=== PATIENT | female | born 1940 | race Caucasian/White ===

== ENCOUNTER 2024-09-05 20:43 | Inpatient (IN) | payer OTHER, SELFPAY ==
[2024-09-05] VITALS (7 sets, daily range): BP systolic 144–184; BP diastolic 59–91; BMI 25.5; BMI 24.5
--- NOTE | 2024-09-05 17:19 | ED.MUSCINJ ---
HPI-Injury
General
Chief Complaint: Musculo-Skeletal Complaint
Source: patient
Exam Limitations: none
Time Seen by Provider: 09/05/24 17:09
Nursing documentation reviewed up to this point in time: agreed with
History of Present Illness-Injury
Is this injury a work related problem?: No
Is pt an associate of [facility]/[place]?: No
Initial Injury comments:
Patient states she tripped over her walker and fell. Denies hitting her head. Complains of pain to left hip and left shoulder. Injury occurred just [employer]. Brought to ED via EMS for eval.
Past History
Past History
ED Past Medical History: HTN and Hypothyroidism
ED Past Surgical History: None
Review of Systems
Review of Systems
Allergies reviewed?: Yes
All Other Systems: ROS reviewed and negative except as documented in HPI and ROS
Constitutional: Reports no symptoms
EENT: Reports no symptoms
Respiratory: Reports no symptoms
Cardiac: Reports no symptoms
ABD/GI: Reports no symptoms
: Reports no symptoms
Musculoskeletal: Reports joint pain (Pain to left hip, left shoulder)
Skin: Reports no symptoms
Neurological: Reports no symptoms
Psychiatric: Reports no symptoms
Musculoskeletal Injury Exam
Musculoskeletal Injury Exam
Left Hip:
Pain with Movement?: Moderate
Tender to palpation?: Moderate
Soft tissue swelling?: None
Joint effusion?: None
Contusion?: Moderate
Hematoma-local bleeding into tissue?: None
Strain- Sprain- Tear (Connective tissue injury)?: Moderate
Crepitus with movement?: No
Joint instability?: No
Malalignment/deformity?: No
Range of motion: Limited
Distal skin color and temperature: normal-warm & good color
Capillary Refill: normal
Normal distal neurovascular exam?: Yes
Peripheral Pulses: posterior tibial (left): 3+ and dorsalis pedis (left): 3+
Left Shoulder:
Pain with Movement?: Moderate
Tender to palpation?: Moderate
Soft tissue swelling?: None
External deformity and angulation?: None
Joint effusion?: None
Hematoma-local bleeding into tissue?: None
Strain- Sprain- Tear (Connective tissue injury)?: None
Crepitus with movement?: No
Joint instability?: No
Malalignment/deformity?: No
Range of motion: Limited
Distal skin color and temperature: normal-warm & good color
Capillary Refill: normal
Normal distal neurovascular exam?: Yes
Peripheral Pulses: radial (left): 3+
Phy Exam
General Physical Exam
General Presentation: moderate distress
General age: appears stated age
General Skin: warm and dry
General Habitus: normal
General Mental: alert
Cardiovascular Exam
Cardiovascular Exam: regular rate/rhythm and no edema
Pulmonary Exam
Pulmonary Exam: no respiratory distress and chest non tender
Gastrointestinal Exam
Gastrointestinal Exam: normal bowel sounds, non tender, soft and no organomegaly
Musculoskeletal Exam
Musculoskeletal Exam: neuro vasc intact
Skin Exam
Skin Exam: normal color, warm/dry and no rash
Psychiatric Exam
Psychiatric Exam: normal mood/affect
Injury Course
Orders/Labs/Results
Orders:
Orders
09/05/24 Dinner
Regular
At Your Request: Non-Participating
09/05/24 17:17
HYDROmorphone [Dilaudid] 0.5 mg IV NOW STA
Ondansetron Injectable [Zofran] 4 mg IV NOW STA
Hip, Left 2-3 Views [CR Hip - LT w/wo Pel 2-3 Vw*] Urgent
Comment:
Reason For Exam: fall
Include a pelvis x-ray?: Yes
Shoulder, Left, Trauma CR [CR Shoulder, Trauma - Left] Urgent
Comment:
Reason For Exam: fall
09/05/24 17:18
0.9% Sodium Chloride 1000 ml [Nss] 1,000 ml IV BOLUS
09/05/24 17:32
Type+Screen Urgent
Complete Blood Count/With Diff Urgent
Comprehensive Metabolic Panel Urgent
09/05/24 17:38
Morphine Sulfate 2 mg IV NOW STA
09/05/24 19:15
ABO2 Urgent
BBK Wristband Number:
Associate notified that ABO2 has been ordered: [id number]
Date: 09/05/24
Time: 18:03
[employer]inter ID: [id number]
Urinalysis Reflex To Culture Urgent
Date Specimen was Collected: 09/05/24
Time Specimen was Collected: 17:59
Urine Microscopic Reflex Cult Urgent
Urine Culture Urgent
SAAD Source: U
Specimen Description:
Date Specimen was Collected: 09/05/24
Time Specimen was Collected: 17:59
09/05/24 20:07
Admit/Transfer Patient As Directed
Co-Sign Provider:
Level of Care: Inpatient admission
Assign to:: Medical/Surgical
Physician / Group: rissa skinner
Diagnosis: mechan fall w/left hip fx shoulder strain
Reason for Hospitalization: mechan fall w/left hip fx shoulder strain
Expected length of stay greater than two midnights?: Yes
ELOS- Estimated Length of Stay in days: 4
I certify the patient meets the requirements for IP care: Yes
Code Status As Directed
Resuscitation Status: Full Code
09/05/24 20:13
PRN Pain Medication Management As Directed
May give lesser potent ordered pain med per pt: Yes
preference::
Protocol:: Medication orders for pain may be administered in a
manner that supports deferring to patient preference
when the pt is:
- Requesting an ordered lesser potent pain medication.
Least to most potent pain medications are defined
as: acetaminophen < NSAID < tramadol < opioids
(morphine, oxycodone, hydromorphone).
- Requesting a lesser dose of the same medication IF
ORDERED.
- Requesting a less intrusive route of administration
if both routes are prescribed by the provider (PO <
IV).
09/05/24 20:33
EKG [Electrocardiogram (*1)] Urgent
Reason for Study: PreOp
09/05/24 21:19
Morphine Sulfate 2 mg IV Q4HPRN PRN
Morphine Sulfate 4 mg IV Q4HPRN PRN
Ondansetron Injectable [Zofran] 4 mg IV Q6HPRN PRN
09/05/24 21:19
ORTHOPEDIC CONSULT Routine
Consulting Provider: Sascha Marshall
Was physician already notified: Yes
Reason for consult: left hip fx
Activity As Directed
Activity Level: With Assistance
Intake/ Output As Directed
Frequency: Per unit guidelines
Sequential Compression Device [Pneumatic Compression Sleeves] As Directed
Type: Knee high
Vital Signs As Directed
Frequency: Per unit guidelines
Weight As Directed
Frequency: Daily
O2 Therapy [RESP] Routine
Nasal Cannula Liter Flow: 2 LPM
Titrate/Wean O2 to maintain O2 sat greater than (%): 92
Pulse Ox/spot Check [RESP] Routine
Quantity: 1
Ot Eval And Treat Routine
Pt Eval And Treat Routine
Activity Level: With Assistance
DX Deep Vein Thrombosis Video Routine
09/06/24 Breakfast
NPO
Allow oral meds: Yes
Allow clear liquids: No
NPO with Ice Chips: No
Complete Blood Count/With Diff IN AM
Comprehensive Metabolic Panel IN AM
09/06/24 08:00
Donepezil [Aricept] 5 mg PO BID
Multivitamin [Theragran] 1 tablet PO BID
09/06/24 12:00
Levothyroxine [Synthroid] 100 mcg PO NOON
Metoprolol [Lopressor] 25 mg PO NOON
Midodrine [ProAmatine] 5 mg PO NOON
09/07/24 06:00
Complete Blood Count/With Diff IN AM
Comprehensive Metabolic Panel IN AM
09/07/24 08:00
Bisacodyl [Dulcolax] 10 mg RECTAL [id number] PRN
Docusate W/Senna [Senokot-S] 1 tablet PO BIDPRN PRN
Polyethylene Glycol Powder [Miralax] 17 grams PO DAILYPRN PRN
09/07/24 12:00
Aspirin Low Dose EC [Aspir Low (Enteric Coated)] 81 mg PO NOON
09/08/24 06:00
Complete Blood Count/With Diff IN AM
Comprehensive Metabolic Panel IN AM
09/09/24 06:00
Complete Blood Count/With Diff IN AM
Comprehensive Metabolic Panel IN AM
Abnormal Lab Results
09/05/24 09/05/24
17:32 19:15
WBC 13.2 H 10^3/uL
(4.8-10.8)
RBC 3.86 L 10^6/uL
(4.20-5.40)
MCH 34.5 H pg
(27.0-31.0)
MPV 11.3 H fL
(7.4-10.4)
Abs Immat Gran (auto) 0.2 H 10^3/uL
(0-0.05)
Absolute Neuts (auto) 11.2 H 10^3/uL
(1.4-6.5)
Absolute Lymphs (auto) 0.8 L 10^3/uL
(1.2-3.4)
Absolute Monos (auto) 0.9 H 10^3/uL
(0.1-0.6)
Immature Gran % 1.6 H %
(0-0.5)
Neutrophils % 84.4 H %
(42.2-75.2)
Lymphocytes % 6.0 L %
(20.5-51.1)
Glucose 124 H mg/dl
(70-99)
AST 39 H U/L
(14-36)
Leukocyte Esterase Rfl 1+ A
(Negative)
Urine Bacteria (Reflex) Many A
(Negative)
09/05/24 17:32
09/05/24 17:32
MDM/Problems Addressed
Differential Diagnosis Includes:
Patient to ED after trip and fall at home. No head injury. Pain to left hip and shoulder. Left hip with intratrochanteric fx. Dr. Marshall consulted. NPO after MN, for OR in AM. Discussed xray results and plan with patient and son and they are
agreeable to plan.
*Radiology
Radiology exam reviewed: radiology read reviewed
*Pulse Oximetry
Patient hypoxic: no
*Critical Care Note
Total Time (30-74mins, 75-104mins- exclusive of procedures): Not Applicable
Update Note
Update Note:
Patient requesting limited IV fluids. States patient experienced fluid overload in past and he does not want it to happen again.
ED Attending Note
-
Portions of this chart may have been created with voice recognition software.� Occasional wrong word or��sound alike� substitutions may have occurred due to the inherent limitations of voice recognition software.
Discharge Plan
Departure
Patient Disposition: Admit
Date of Disposition: 09/05/24
Time of Disposition: 19:15
Presentation/result/management discussed w/ accepting MD/DO: Hospitalist
Patient with high blood pressure during this ER visit?: Yes
Condition: Fair
Covid-19: Not Applicable
Discharge Problem:
Closed fracture of left hip
Interventions
Interventions:
*Risk Screen - Suicide Last Done: 09/05/24 17:30
*General Assessment Last Done: 09/05/24 17:30
*Neglect/Abuse Screening Last Done: 09/05/24 17:36
ED- Fall Risk Assessment Last Done: 09/05/24 21:14
*ED COVID-19 Vaccine History Last Done: 09/05/24 17:30
*Nursing Disposition Last Done: 09/05/24 21:14
Discharge Date and Time
Discharge Date/Time: 09/05/24 21:14
[2024-09-05] MEDS: NSS 1000 IV (17:29)
[2024-09-05 17:42] LABS: % Basophils 0.7 % (0-2); % Eosinophils 0.7 % (0-6); % Immature Granulocytes 1.6 % (0-0.5); % Monocytes 6.6 % (1.7-9.3); % Neutrophils 84.4 % (42.2-75.2); Absolute Basophils 0.1 10^3/uL (0-0.2); Absolute Eosinophils 0.1 10^3/uL (0-0.7); Absolute Immature Granulocytes 0.2 10^3/uL (0-0.05); Absolute Lymphocytes 0.8 10^3/uL (1.2-3.4); Absolute Monocytes 0.9 10^3/uL (0.1-0.6); Absolute Neutrophils 11.2 10^3/uL (1.4-6.5); Hematocrit 37.9 % (37.0-47.0); Hemoglobin 13.3 g/dL (12.0-16.0); Mean Corp Hgb Conc. 35.1 g/dL (33.0-37.0); Mean Corpuscular Hgb 34.5 pg (27.0-31.0); Mean Corpuscular Volume 98.2 fL (81.0-99.0); Mean Platelet Volume 11.3 fL (7.4-10.4); Nucleated Red Blood Cells % 0 %; Platelet Count 225 10^3/uL (130-400); Red Blood Cell Count 3.86 10^6/uL (4.20-5.40); Red Cell Dist. Width 13.2 % (11.5-14.5); White Blood Cell Count 13.2 10^3/uL (4.8-10.8)
[2024-09-05] MEDS: MORPHINE SULFATE 2 MG IV (17:53)
[2024-09-05] MEDS: ZOFRAN 4 MG IV (17:54)
[2024-09-05 17:59] LABS: ALT (SGPT) 25 U/L (0-35); AST (SGOT) 39 U/L (14-36); Albumin 4.7 g/dl (3.5-5.0); Alkaline Phosphatase 97 U/L (38-126); Blood Urea Nitrogen 15 mg/dl (7-17); Calcium 9.9 mg/dl (8.4-10.2); Carbon Dioxide 28 mmol/L (22-30); Chloride 99 mmol/L (98-107); Estimated Creatinine Clearance 44 ml/min; Glucose 124 mg/dl (70-99); Potassium 4.3 mmol/L (3.5-5.1); Sodium 139 mmol/L (135-145); Total Bilirubin 0.7 mg/dl (0.2-1.3); Total Protein 6.9 g/dl (6.3-8.2); eGFR > 60.00
--- NOTE | 2024-09-05 19:30 | HPS.HSE ---
Addendum entered and electronically signed by Adrian Dawkins DO 09/05/24 22:00:
Patient seen and examined independently. Agree with findings and plan as set forth by JUJU Curtis.
Patient is an 83y F with PMH significant for mild dementia, hypertension and hypothyroidism who presents to ED for evaluation s/p fall at home. Patient states that she tripped over her walker and fell onto her L side. She complained of L hip
pain and L shoulder pain. L shoulder pain has since resolved. In the ED, x-rays showed evidence of L hip fracture.
Ass:
Left Hip Fracture
Mechanical Fall at Home
ASCVD (Carotid Stenosis / PAD)
Chronic HFpEF
Benign Hypertension
Hypothyroidism
Gait Dysfunction / Mild Tremor
Plan:
Admit for further evaluation and treatment.
Bedrest, pain control, etc overnight.
Ortho evaluation for operative repair.
EKG is pending given prior h/o CEA, PAD, etc.
Patient denies any prior complications of surgery / anesthesia.
No evidence of acute volume overload or other decompensated state at present.
Benefits of planned procedure outweigh potential risks and patient is OK to proceed to OR without additional pre-op evaluation(s).
Post-Op PT / OT, pain control, DVT prophylaxis, etc
Continue usual home medication regimen except for Lasix (which she only takes every 3 days).
Follow I/Os, daily weights, etc.
Recommend outpatient Neuro eval for symptoms (memory, gait, tremor) suggestive of Parkinsonism.
Original Note:
Family Physician
-
Family Physician: Shreyas Hollis
Chief Complaint
-
Trip and fall, left hip left shoulder pain
History of Present Illness
83-year-old female from home where she tripped over her walker falling landing on her left side. She denies hitting her head or LOC. She is complaining of pain in her left hip and left shoulder. She was noted to have a left hip fracture on x-rays
in the ER. The patient lives by herself in a condo. She has aides from - during a week and - on the weekends. She denies any headache, blurred vision, sore throat, chest pain, palpitations, shortness with, cough, abdominal pain, nausea,
vomiting, diarrhea, urinary symptoms. She has a past medical history of hypertension, hyperlipidemia, hypothyroidism, UTIs, dementia with short-term memory impairment, chronic tremor/shuffling gait right greater than left.
Medical History
Past Medical History
Past Medical History: Reports Other
Additional Past Medical History:
Hypertension
Orthostatic hypotension
Hyperlipidemia
UTIs
Hypothyroidism
dementia with short-term memory impairment
chronic tremor/shuffling gait right greater than left.
Past Surgical History: Reports Other
Additional Past Surgical History:
Fem bypass with stent December 2023
Carotid stenosis bilateral CEA
Right humerus fracture secondary to fall
Social History
Tobacco: Former Smoker (25 years 1 pack a day quit 40 years ago)
Alcohol: None
Drug: None
Personal: Single
Living: Alone (In condo has aides Tuesday through 10-03, weekends -)
Employment: Retired
Family History
Family History: Other (Father CAD OR age 65, mother leukemia)
Allergies / Home Medications
Allergies reflects when Allergies were last updated in [facility].
Home Medications with original date entered in [facility]
Allergy/Medication List:
Allergies
Allergy/AdvReac Type Severity Reaction Status Date / Time
adhesive tape Allergy Unknown Verified 09/05/24 17:12
iodine Allergy Unknown Verified 09/05/24 17:12
Penicillins Allergy 'pt unsure' Verified 09/05/24 17:12
Sulfa (Sulfonamide Allergy Unknown Verified 09/05/24 17:12
Antibiotics)
Home Medications
Lactobac no.2-Bifidobac no.1-S. thermo 112.5 billion cell capsule (Visbiome) 1 cap PO NOON 09/05/24
aspirin 81 mg tablet,delayed release 81 mg PO NOON 09/05/24
d-mannose 500 mg capsule 500 mg PO NOON 09/05/24
donepezil 5 mg tablet 5 mg PO BID 09/05/24
furosemide 20 mg tablet 20 mg PO Q3D 09/05/24
levothyroxine 100 mcg tablet 100 mcg PO NOON 09/05/24
metoprolol tartrate 25 mg tablet 25 mg PO NOON 09/05/24
midodrine 5 mg tablet 5 mg PO NOON 09/05/24
therapeutic multivitamin 1 tab PO BID 09/05/24
vit C 250 mg-vit E 90 mg-zinc 40 mg-copper 1 [id number] capsule (PreserVision AREDS-2) 1 tab PO NOON 09/05/24
Review of Systems
-
History Source: Patient and Family (Son Betty at bedside)
A 12 point ROS was completed and negative except as noted: Yes
Constitutional: Denies Fever, Fatigue or Chills
EENT: Denies Sore Throat or Runny Nose
Respiratory: Denies Cough or Trouble Breathing
Cardiac: Denies Chest Pain, Diaphoresis, Palpitations or Syncope
Abdomen/GI: Denies Abdominal Pain, Nausea, Vomiting, Diarrhea, Constipated, Bloody Stools or Black Stools
: Denies Dysuria, Frequency, Flank Pain, Incontinence, Difficulty Voiding or Urgency
Musculoskeletal: Reports Joint Pain (Left hip, left shoulder); Denies Joint Swelling or Edema
Skin: Denies Itching or Rash
Neurological: Denies Dizzy, Headache or Weakness
Endocrine: Reports No Symptoms
Hematologic/Lymphatic: Reports No Symptoms
Psych: Reports Calm
Physical Exam
Vital Signs
Vital Signs
Temp Pulse Resp BP Pulse Ox
99.0 F 79 16 166/64 96
09/05/24 17:08 09/05/24 18:00 09/05/24 17:08 09/05/24 18:00 09/05/24 18:00
Physical Exam
General: Comfortable (At present time) and Conversant; No Pain, Fever or Chills
HEENT: NormoCephalic, Anicteric, Moist mucous membranes, Atraumatic, PERRLA, [place] Conjunctivae, No Ptosis, Neck Nontender and Oxygen (2 L nasal cannula)
Respiratory: Clear; No Wheezes, Rales or Rhonchi
Cardiac: S1/S2, Regular Rhythm and Murmur (Systolic 2/6); No Rub, Gallop or Peripheral Edema
Breast: Deferred by me
GI: Soft, Non Tender, Non Distended, Normal Bowel Sounds and No Hepatosplenomegaly
Rectal: Deferred by Provider
Genito-urinary: Deferred by me
Musculoskeletal: No Clubbing, No Cyanosis, No Edema and Other (Tenderness over left hip area no abrasions or ecchymosis, limited range of motion secondary to fracture, left shoulder pain no limited range of motion no swelling or abrasions)
Skin: Warm and Dry; No Rash or Jaundice
Neuro: Awake, Alert, Oriented (To name, place, son at bedside but not some of medical history), No Sensory Deficits and Other (Occasional shaking and shuffling right leg with walking not diagnosed per son betty); No Slurred Speech, Facial Droop,
Tremors or Sedated
Psych: Calm
Laboratory Results
-
09/05/24 17:32
09/05/24 17:32
Laboratory Results
Total Bilirubin 0.7 mg/dl (0.2-1.3) 09/05/24 17:32
AST 39 U/L (14-36) H 09/05/24 17:32
ALT 25 U/L (0-35) 09/05/24 17:32
Alkaline Phosphatase 97 U/L (38-126) 09/05/24 17:32
Data Reviewed
-
Diagnostic Radiology: Report Reviewed by me
Lab Data: Labs Reviewed by me
Impression/Plan
-
Impression/plan:
Admit to MedSurg
#Mechanical fall left hip intertrochanteric fracture with displacement
-N.p.o. after midnight for OR in a.m.
-Consult Dr. Marshall
-Pain control, bowel regimen
-Supplemental O2 as needed as patient becomes slightly hypoxic after IV narcotics
-Tylenol, IV morphine, IV Zofran, bowel regimen
-PT/OT/case management consult
X-ray left hip and pelvis: Acute comminuted intertrochanteric fracture of the left hip with 7 mm medial displacement and
9 mm impaction of the major distal fracture fragment
#Mechanical fall with left shoulder sprain
-Ice, pain control
Left shoulder x-ray: No fracture or dislocation
#Former smoker
-25 years 1 pack a day quit 40 years ago
#Orthostatic hypotension
-Continue midodrine 5 mg at noon
#Dementia with short-term memory impairment
#Chronic tremor/shuffling gait right greater than left.
Is oriented to name, place, son, year
-Fall precautions
-Continue donepezil 5 mg twice daily
#History of diastolic CHF
-I/O, daily weights
-Hold furosemide 20 mg every 3 days
-Continue metoprolol tartrate 25 mg at noon, continue aspirin 81 mg daily
2D echo 01/20/2022: EF 65-70%, hyperdynamic left ventricular function, no wall abnormalities, grade 1 diastolic dysfunction, mild aortic
stenosis, mild mitral stenosis
#Hypothyroidism
-Continue levothyroxine 100 mcg p.o. noon
#Hyperlipidemia
-No reported meds
#Carotid stenosis status post bilateral CEA
#Fem bypass with stent December 2023 [facility]
-Continue aspirin 81 mg daily
DVT prophylaxis
Full code per patient with son Betty emergency contact at bedside
[2024-09-05 19:34] LABS: Urine Albumin Negative (Neg - Trace); Urine Bilirubin Negative (Negative); Urine Character Clear (Clear); Urine Color Yellow; Urine Glucose Negative (Negative); Urine Ketone Negative (Negative); Urine Leukocyte 1+ (Negative); Urine Nitrite Negative (Negative); Urine Occult Blood Negative (Negative); Urine Specific Gravity 1.015 (<1.030); Urine Urobilinogen Negative (Neg - 1+)
[2024-09-05 19:44] LABS: Urine Red Blood Cell 0-2 /HPF (0-2); Urine Squamous Cell 0-2 /LPF (Few)
[2024-09-05 19:45] LABS: Urine Bacteria Many (Negative)
--- NOTE | 2024-09-05 22:59 | TRANSFER ---
Received pt from ED at 2120 dx s/p mechanical fall w left hip fracture and left shoulder sprain. Pt reported 8/10 pain from being transferred from stretcher to bed, but denied needing pain medication. VS as documented. Pt OX2, able to verbalize
needs. LLE is shortened and externally rotated. bed in lowest position, call obrien within reach. Safety maintained.
[2024-09-06] MEDS: MORPHINE SULFATE 2 MG IV (00:23)
[2024-09-06 05:54] LABS: % Basophils 0.6 % (0-2); % Eosinophils 0.4 % (0-6); % Immature Granulocytes 0.8 % (0-0.5); % Lymphocytes 8.2 % (20.5-51.1); % Monocytes 9.5 % (1.7-9.3); % Neutrophils 80.5 % (42.2-75.2); Absolute Basophils 0.1 10^3/uL (0-0.2); Absolute Eosinophils 0.1 10^3/uL (0-0.7); Absolute Immature Granulocytes 0.1 10^3/uL (0-0.05); Absolute Lymphocytes 1.4 10^3/uL (1.2-3.4); Absolute Monocytes 1.6 10^3/uL (0.1-0.6); Absolute Neutrophils 13.8 10^3/uL (1.4-6.5); Hematocrit 41.2 % (37.0-47.0); Hemoglobin 14.4 g/dL (12.0-16.0); Mean Corpuscular Hgb 35.1 pg (27.0-31.0); Mean Corpuscular Volume 100.5 fL (81.0-99.0); Mean Platelet Volume 11.5 fL (7.4-10.4); Nucleated Red Blood Cells % 0 %; Platelet Count 222 10^3/uL (130-400); Red Cell Dist. Width 13.2 % (11.5-14.5); White Blood Cell Count 17.1 10^3/uL (4.8-10.8)
[2024-09-06 07:13] VITALS: BP 135/59
--- NOTE | 2024-09-06 07:21 | CON.ORTHO ---
Consultation
-
Date/Time Consultation Requested: unknown
Date/Time Consultation Performed: 09/06/24 @ 7:20am
Performing Provider: Jennifer Vergara PA-C, Sascha Marshall MD
Reason for Consultation: left hip fracture
Consultation - Orthopedics
History
HPI: 83yo female admitted to [facility] for left hip pain. History obtained via patient, son, and chart review. She reports that she had a fall and was unable to get up. She was brought to the ER for evaluation by EMS. Xrays in the ER
reveal left hip fracture. She is not on any blood thinners. Son reports that patient has had nausea and confusion following anesthesia in the past. Orthopedics has been consulted for further recommendations.
PAST MEDICAL HISTORY: hypertension, orthostatic hypotension, hyperlipidemia, hypothyroid, dementia with short term memory impairment, chronic tremor/shuffling gait, carotid stenosis
PAST SURGICAL HISTORY: femoral bypass with stent December 2023 at [facility], bilateral CEA, right humerus
SOCIAL HISTORY: former smoker, denies alcohol. lives at home alone with aides during the day
FAMILY HISTORY: Noncontributory
REVIEW OF SYSTEMS: 12 point review of systems obtained and negative except those mentioned in the HPI
Allergies / Home Medications
Allergy/AdvReac Type Severity Reaction Status Date / Time
adhesive tape Allergy Unknown Verified 09/05/24 17:12
iodine Allergy Unknown Verified 09/05/24 17:12
Penicillins Allergy 'pt unsure' Verified 09/05/24 17:12
Sulfa (Sulfonamide Allergy Unknown Verified 09/05/24 17:12
Antibiotics)
�Medication �Instructions �Recorded
Lactobac no.2-Bifidobac no.1-S. 1 cap PO NOON 09/05/24
thermo 112.5 billion cell capsule
(Visbiome)
aspirin 81 mg tablet,delayed 81 mg PO NOON 09/05/24
release
d-mannose 500 mg capsule 500 mg PO NOON 09/05/24
donepezil 5 mg tablet 5 mg PO BID 09/05/24
furosemide 20 mg tablet 20 mg PO Q3D 09/05/24
levothyroxine 100 mcg tablet 100 mcg PO NOON 09/05/24
metoprolol tartrate 25 mg tablet 25 mg PO NOON 09/05/24
midodrine 5 mg tablet 5 mg PO NOON 09/05/24
therapeutic multivitamin 1 tab PO BID 09/05/24
vit C 250 mg-vit E 90 mg-zinc 40 1 tab PO NOON 09/05/24
mg-copper 1 [id number]
capsule (PreserVision AREDS-2)
Vital Signs / Lab Results
Temp Pulse Resp BP Pulse Ox
97.3 F 95 20 135/59 94
09/06/24 07:13 09/06/24 07:13 09/06/24 07:13 09/06/24 07:13 09/06/24 07:13
09/06/24 04:26
RADIOGRAPHIC FINDINGS:
Xrays left hip show acute comminuted intertrochanteric fracture of the left hip with 7 mm medial displacement and 9 mm impaction of the major distal fracture fragment. Xrays left shoulder show no acute fracture or dislocation.
PHYSICAL EXAM:
General: no acute distress. able to tell me her name, states that she is at [facility] and the year is 1993
HEENT: NCAT, sclera anicteric, normal hearing
Heart: No JVD
Lungs: Normal work of breathing on nasal cannula
MSK: Directed exam of left lower extremity reveal leg shortened and externally rotated. Mild general tenderness about laterl hip. +Log roll. Able to plantarflex and dorsiflex the ankle. Wiggles toes. NVI distally
Assessment / Plan
ASSESSMENT: 83yo female with left intertrochanteric hip fracture
PLAN: Unfortunately, Ms. Marques sustained a left hip fracture from a fall. I did speak to the patient's son, Mc Marques, via telephone ([phone]). This fracture is amenable to operative treatment. Recommend left hip gamma nail under the
direction of Dr. Marshall later today. The risks, benefits, and potential complications were reviewed with Mc. He would like to speak to Dr. Marshall prior to signing consent. I did make Dr. Marshall aware. Bedrest for now. Remain NPO. Type and screen
complete. [employer] intelligence applications to OR. Will continue to follow along.
[2024-09-06 07:54] LABS: ALT (SGPT) 24 U/L (0-35); AST (SGOT) 33 U/L (14-36); Albumin 4.4 g/dl (3.5-5.0); Alkaline Phosphatase 102 U/L (38-126); Blood Urea Nitrogen 14 mg/dl (7-17); Calcium 9.5 mg/dl (8.4-10.2); Carbon Dioxide 25 mmol/L (22-30); Chloride 104 mmol/L (98-107); Estimated Creatinine Clearance 55 ml/min; Glucose 119 mg/dl (70-99); Sodium 141 mmol/L (135-145); Total Bilirubin 1.2 mg/dl (0.2-1.3); Total Protein 6.6 g/dl (6.3-8.2); eGFR > 60.00
--- NOTE | 2024-09-06 08:36 | W.PN.HOSP.TC ---
Today's Communication/Plan
-
For surgical fixation today
Assessment / Plan
Assessment / Plan
HPI: 83y F with PMH significant for mild dementia, hypertension and hypothyroidism who presents to ED for evaluation s/p fall at home. Patient states that she tripped over her walker and fell onto her L side. She complained of L hip pain and L
shoulder pain. L shoulder pain has since resolved. In the ED, x-rays showed evidence of L hip fracture.
#Mechanical fall left hip intertrochanteric fracture with displacement
Appreciate orthopedic surgery input, for surgical fixation today
Pain control, laxatives, PT/OT after surgery
Anticipate patient will need SNF afterwards
#Mechanical fall with left shoulder sprain
Left shoulder x-rays negative for fracture or dislocation
#Former smoker
-25 years 1 pack a day quit 40 years ago
#Orthostatic hypotension
-Continue midodrine 5 mg at noon
#Dementia with short-term memory impairment
#Chronic tremor/shuffling gait right greater than left.
Is oriented to name, place, son, year
-Fall precautions
-Continue donepezil 5 mg twice daily
#History of diastolic CHF
-Hold furosemide 20 mg every 3 days
-Continue metoprolol tartrate 25 mg at noon, continue aspirin 81 mg daily
#Hypothyroidism
-Continue levothyroxine 100 mcg p.o. noon
#Hyperlipidemia
-No reported meds
#Carotid stenosis status post bilateral CEA
#Fem bypass with stent December 2023 [facility]
-Continue aspirin 81 mg daily
DVT prophylaxis -SCDs for now in anticipation of surgery, therapeutic Lovenox postoperatively
Full code
Total time spent to see the patient on the floor, examine the patient, review data and lab results, discuss treatment plan with patient, nursing staff around 55 minutes.
Physical Exam
General: No acute distress
HEENT: Normocephalic, Atraumatic, EOMI, MMM
Respiratory: Clear to Auscultation bilaterally
Cardiac: Normal S1/S2, Regular Rate and Rhythm
GI: Soft, Nontender, Nondistended, Normal Bowel Sounds
Extremities: No Clubbing, Cyanosis
Musculoskeletal: Left leg shortened and externally rotated
Neuro: Nonfocal/Grossly Intact
Psych: Calm, Cooperative
Anticipated Discharge: > 48 hours
Subjective/Interval History
-
Date of Service: September 06, 2024
Patient reports she only has hip pain with movement. No fever, no vomiting. No chest pain, no shortness of breath.
Objective Data
-
Labs:
Laboratory Results
09/06/24 09/06/24
04:26 07:14
WBC 17.1 H
Hgb 14.4
Hct 41.2
Plt Count 222
Sodium Cancelled 141
Potassium Cancelled 4.0
Chloride Cancelled 104
Carbon Dioxide Cancelled 25
BUN Cancelled 14
Creatinine Cancelled 0.6
Glucose Cancelled 119 H
Calcium Cancelled 9.5
Total Bilirubin Cancelled 1.2
AST Cancelled 33
ALT Cancelled 24
Alkaline Phosphatase Cancelled 102
Vital Signs:
Vital Signs
Temp Pulse Resp BP Pulse Ox
97.3 F 95 20 135/59 94
09/06/24 07:13 09/06/24 07:13 09/06/24 07:13 09/06/24 07:13 09/06/24 07:13
I&O
09/05/24 09/06/24 09/07/24
06:59 06:59 06:59
Intake Total 240 / 240
Output Total 400 / 400
Balance -160 / -160
[2024-09-06] MEDS: ARICEPT 5 MG PO ×2 (10:07→20:37)
[2024-09-06] MEDS: THERAGRAN 1 TABLET PO ×2 (10:07→20:37)
--- NOTE | 2024-09-06 10:21 | CM ---
Met with pt at bedside, spoke with pts son Mc to complete initial assessment
Pt lives alone in an apartment; elevator access
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 studio potter assists with ADL's, does shopping,cleaning. prepares meals. Pt ambulates with rolling walker at baseline
DME - rolling walker, cane, shower chair
SNF - in past, son unsure of facility
HH - was to start with Manuel this week
PCP - [facility] - sees multiple providers
Pharm - [facility]
Discussed possibility of SNF with son. Discussed Medicare.gov site to review facilities
Given CM name/contact info
CM will follow up w/son
Plan - anticipate SNF - TBD
--- NOTE | 2024-09-06 12:14 | W.PN.UPDATE ---
Update Note
Progress Note Update
Patient seen and examined with son at bedside. Patient admitted with left IT fracture. Explained treatment recommendations to proceed with gamma nail for left IT fracture. Risks, benefits, complications and postop expectations discussed.
Procedure itself discussed in detail. All questions answered. Informed consent obtained by telephone earlier and again in person. Consent on chart. Explained that myself or Dr. Marshall would proceed with surgery as the OR permits. OR
unavailable currently as no C-arm available.
[2024-09-06] MEDS: SYNTHROID 100 MCG PO (12:36)
[2024-09-06] MEDS: LOPRESSOR 25 MG PO (12:36)
[2024-09-06] MEDS: ProAmatine PO (12:37)
[2024-09-06 15:25] VITALS: BP 147/66
[2024-09-06] MEDS: MORPHINE SULFATE 4 MG IV (16:03)
[2024-09-06] MEDS: ZOFRAN 4 MG IV (17:29)
[2024-09-06] MEDS: MIRALAX 17 GRAMS PO (20:36)
[2024-09-06] MEDS: TYLENOL 650 MG PO (20:37)
[2024-09-06] MEDS: SENOKOT-S 2 TABLET PO (20:37)
[2024-09-06 23:00] VITALS: BP 132/66
[2024-09-07] VITALS (13 sets, daily range): BP systolic 114–162; BP diastolic 61–81; PULSE 81; O2SAT 96–98
[2024-09-07] MEDS: MORPHINE SULFATE 2 MG IV (05:51)
[2024-09-07 06:42] LABS: Hematocrit 37.3 % (37.0-47.0); Hemoglobin 12.6 g/dL (12.0-16.0); Mean Corp Hgb Conc. 33.8 g/dL (33.0-37.0); Mean Corpuscular Volume 100.5 fL (81.0-99.0); Mean Platelet Volume 10.9 fL (7.4-10.4); Platelet Count 214 10^3/uL (130-400); Red Blood Cell Count 3.71 10^6/uL (4.20-5.40); Red Cell Dist. Width 13.6 % (11.5-14.5); White Blood Cell Count 16.8 10^3/uL (4.8-10.8)
[2024-09-07 07:17] LABS: Blood Urea Nitrogen 21 mg/dl (7-17); Calcium 9.5 mg/dl (8.4-10.2); Carbon Dioxide 25 mmol/L (22-30); Chloride 103 mmol/L (98-107); Estimated Creatinine Clearance 42 ml/min; Glucose 110 mg/dl (70-99); Magnesium 2.2 mg/dl (1.6-2.3); Potassium 4.3 mmol/L (3.5-5.1); Sodium 142 mmol/L (135-145); eGFR > 60.00
--- NOTE | 2024-09-07 08:00 | PTCARENOTE ---
Pt instructed on what to expect pre and post operatively. Although Pt has hx of dementia was able to verbalize understanding of instructions. VSS, Pt is afebrile. Verbal report given to Sonja RDZ. Pt's son called and aware that Pt on her way to
surgical suite now.
--- NOTE | 2024-09-07 09:19 | W.PN.UPDATE ---
Update Note
Progress Note Update
83-year-old female left hip intertrochanteric femur fracture plan for OR originally 06 September 2024 however case was deferred due to OR and equipment availability.
Plan 4 OR today 07 September 2024 for left hip cephalomedullary nail fixation with Dr. Hendrickson. Consent on file. N.p.o. We will update postoperative orders
--- NOTE | 2024-09-07 11:25 | PTCARENOTE ---
Pt received from the PACU via bed. Transport was w/o incident. Pt is drowsy and easily arousable. Dressings: 3 antibacterial dressings to left hip and upper leg are intact. Two lower dressings with minimal shadowing noted. Pt denies pain, or nausea
at this time. Pt can wiggle toes of operative left leg. Pt reports minimal sensation to b/l legs at this time. Pt had spinal anesthesia prior to needing General anesthesia. Will continue to monitor for return of sensation to legs. VSS, Pt is
afebrile. Pt instructed on plan of care. Pt verbalized understanding of instructions. Call obrien is within reach.
[2024-09-07] MEDS: SENOKOT-S PO ×2 (13:01→13:13)
[2024-09-07] MEDS: TYLENOL 650 MG PO ×3 (13:01→21:03)
[2024-09-07] MEDS: THERAGRAN 1 TABLET PO ×2 (13:02→21:03)
[2024-09-07] MEDS: ARICEPT PO (13:03)
[2024-09-07] MEDS: MIRALAX 17 GRAMS PO ×2 (13:03→21:03)
[2024-09-07] MEDS: ProAmatine PO (13:05)
[2024-09-07] MEDS: SYNTHROID 100 MCG PO (13:09)
[2024-09-07] MEDS: LOPRESSOR 25 MG PO (13:09)
--- NOTE | 2024-09-07 14:33 | W.PN.HOSP.TC ---
Today's Communication/Plan
-
see bold
Assessment / Plan
Assessment / Plan
HPI: 83y F with PMH significant for mild dementia, hypertension and hypothyroidism who presents to ED for evaluation s/p fall at home. Patient states that she tripped over her walker and fell onto her L side. She complained of L hip pain and L
shoulder pain. L shoulder pain has since resolved. In the ED, x-rays showed evidence of L hip fracture.
#Mechanical fall left hip intertrochanteric fracture with displacement
Appreciate orthopedic surgery input, s/p left hip cephalomedullary nail fixation with Dr. Hendrickson 09/07
Pain control, laxatives, PT/OT after surgery
Anticipate patient will need SNF afterwards
#Leukocytosis
Urine analysis shows possible UTI
Currently on IV Ancef ordered by Ortho
Follow-up urine cultures
#Mechanical fall with left shoulder sprain
Left shoulder x-rays negative for fracture or dislocation
#Former smoker
-25 years 1 pack a day quit 40 years ago
#Orthostatic hypotension
-Continue midodrine 5 mg at noon
#Dementia with short-term memory impairment
#Chronic tremor/shuffling gait right greater than left.
Is oriented to name, place, son, year
-Fall precautions
-Continue donepezil 5 mg twice daily
#History of diastolic CHF
-Hold furosemide 20 mg every 3 days
-Continue metoprolol tartrate 25 mg at noon, continue aspirin 81 mg daily
#Hypothyroidism
-Continue levothyroxine 100 mcg p.o. noon
#Hyperlipidemia
-No reported meds
#Carotid stenosis status post bilateral CEA
#Fem bypass with stent December 2023 [facility]
-Continue aspirin 81 mg daily
DVT prophylaxis -therapeutic Lovenox
Full code
Total time spent to see the patient on the floor, examine the patient, review data and lab results, discuss treatment plan with patient, nursing staff around 45 minutes.
Physical Exam
General: No acute distress
HEENT: Normocephalic, Atraumatic, EOMI, MMM
Respiratory: Clear to Auscultation bilaterally
Cardiac: Normal S1/S2, Regular Rate and Rhythm
GI: Soft, Nontender, Nondistended, Normal Bowel Sounds
Extremities: No Clubbing, Cyanosis
Musculoskeletal: Left hip dressing with mild blood
Neuro: Nonfocal/Grossly Intact
Psych: Calm, Cooperative
Anticipated Discharge: 24 - 48 hours
Subjective/Interval History
-
Date of Service: September 07, 2024
Patient seen after her surgery. She had some nausea earlier, that resolved. Denies pain at present. No fever.
Objective Data
-
Labs:
Laboratory Results
09/07/24
06:33
WBC 16.8 H
Hgb 12.6
Hct 37.3
Plt Count 214
Sodium 142
Potassium 4.3
Chloride 103
Carbon Dioxide 25
BUN 21 H
Creatinine 0.8
Glucose 110 H
Calcium 9.5
Vital Signs:
Vital Signs
Temp Pulse Resp BP Pulse Ox
97.6 F 90 18 162/71 98
09/07/24 07:00 09/07/24 07:00 09/07/24 07:00 09/07/24 07:00 09/07/24 07:00
I&O
09/06/24 09/07/24 09/08/24
06:59 06:59 06:59
Intake Total 240 / 240 0 / 0
Output Total 400 / 400
Balance -160 / -160 0 / 0
--- NOTE | 2024-09-07 14:55 | CM ---
Case management following for discharge planning
Pt for left hip cephalomedullary nail fixation today
Met with pt in family member at bedside
Recs for SNF when discharged
Given choice list for SNF
CM will f/u for choices
Will need auth
Plan - anticipate SNF when medically stable
[2024-09-07] MEDS: ANCEF 5 IV (18:01)
[2024-09-07] MEDS: LOVENOX 40 MG SC (18:03)
[2024-09-07] MEDS: SENOKOT-S 2 TABLET PO (21:03)
[2024-09-07] MEDS: ARICEPT 5 MG PO (21:03)
[2024-09-08] MEDS: ANCEF 5 IV (01:02)
[2024-09-08] MEDS: ROXICODONE 5 MG PO ×2 (01:09→14:00)
[2024-09-08 03:00] VITALS: BP 152/64
[2024-09-08] MEDS: ROXICODONE 2.5 MG PO (03:45)
[2024-09-08] MEDS: TYLENOL 650 MG PO ×4 (03:45→20:37)
--- NOTE | 2024-09-08 05:25 | PTCARENOTE ---
Pt. sleeping in chair overnight for comfort stating the bed had been hurting her back previously. Attempted to stand pt. for daily weight with x2 assist and RW but unsuccessful. Pt. unable to bear weight on LLE stating the pain was too severe,
several attempts made. Pain medication given and patient comfortable in the chair at this time.
[2024-09-08 07:00] VITALS: BP 125/59
[2024-09-08] MEDS: ARICEPT 5 MG PO (07:55)
[2024-09-08] MEDS: MIRALAX 17 GRAMS PO ×2 (07:55→20:38)
[2024-09-08] MEDS: THERAGRAN 1 TABLET PO ×2 (07:56→20:38)
[2024-09-08] MEDS: SENOKOT-S 2 TABLET PO ×2 (07:56→20:38)
--- NOTE | 2024-09-08 08:32 | W.PN.ORTHO ---
Today's Communication / Plan
-
POD #1 Left Hip Gamma Nail 09/07/[address] Hendrickson
- WBAT to LLE with use of walker for assistance.
- We appreciate the assistance of PT/OT.
- Currently on therapeutic Lovenox. DVT prophylaxis per primary team.
- Pain control as needed. Ice and elevation for pain and edema control.
- AM labs currently pending. Monitor Hgb.
- Maintain surgical dressings until 7 to 10 days postop. Staple removal at 2 weeks postop.
- Case management consult for discharge planning.
- Orthopedic surgery will continue to follow along.
Assessment
.
Distal Motor Intact: Yes
Dressing:
Small amount of bloody drainage contained within Aquacel dressings. Dressings intact.
Calf is soft and nontender to palpation.
Able to plantarflex and dorsiflex left ankle.
Assessment:
POD #1 Left Hip Gamma Nail 09/07/[address] Hendrickson
Plan
.
Surgery / Date: Left Hip Gamma Nail 09/07/[address] Hendrickson
DVT Prophylaxis: Lovenox
Activity:
Out of bed.
PT/OT
Discharge Information:
Appreciate CM
Subjective
.
.:
Patient resting comfortably in bedside chair. Reports that her left hip pain is controlled at this time.
Vital Signs and Labs
.
Vital Signs and Labs:
Temp Pulse Resp BP Pulse Ox
98.1 F 72 14 125/59 96
09/08/24 07:00 09/08/24 07:00 09/08/24 07:00 09/08/24 07:00 09/08/24 07:00
--- NOTE | 2024-09-08 09:09 | W.PN.HOSP.TC ---
Addendum entered and electronically signed by Adriel Curran MD 09/08/24 15:59:
Upon further review, her GFR is greater than 60, will start Macrobid 100 mg twice a day.
No need for IV vancomycin.
Addendum entered and electronically signed by Adriel Curran MD 09/08/24 15:30:
Enterococcus is resistant to tetracycline.
Start IV vancomycin.
Addendum entered and electronically signed by Adriel Curran MD 09/08/24 15:28:
Unable to order amoxicillin as patient is allergic to penicillin, she does not know the reaction.
Enterococcus is sensitive to ampicillin, levofloxacin, Macrobid, vancomycin.
Macrobid not effective secondary to reduced creatinine clearance.
Unable to use levofloxacin due to QTc prolongation.
Repeat EKG today.
Follow-up CBC today for leukocytosis.
Also will ask micro lab to test against doxycycline.
Original Note:
Today's Communication/Plan
-
see bold
Assessment / Plan
Assessment / Plan
HPI: 83y F with PMH significant for mild dementia, hypertension and hypothyroidism who presents to ED for evaluation s/p fall at home. Patient states that she tripped over her walker and fell onto her L side. She complained of L hip pain and L
shoulder pain. L shoulder pain has since resolved. In the ED, x-rays showed evidence of L hip fracture.
#Mechanical fall left hip intertrochanteric fracture with displacement
Appreciate orthopedic surgery input, s/p left hip cephalomedullary nail fixation with Dr. Hendrickson 09/07
Pain control, laxatives, PT/OT
Anticipate patient will need SNF
# Acute urinary tract infection
#Persistent leukocytosis
Urine culture shows Enterococcus, will start amoxicillin D1
#Mechanical fall with left shoulder sprain
Left shoulder x-rays negative for fracture or dislocation
#Former smoker
-25 years 1 pack a day quit 40 years ago
#Orthostatic hypotension
-Continue midodrine 5 mg at noon
#Dementia with short-term memory impairment
#Chronic tremor/shuffling gait right greater than left.
Is oriented to name, place, son, year
-Fall precautions
-Continue donepezil 5 mg twice daily
#History of diastolic CHF
-Hold furosemide 20 mg every 3 days
-Continue metoprolol tartrate 25 mg at noon, continue aspirin 81 mg daily
#Hypothyroidism
-Continue levothyroxine 100 mcg p.o. noon
#Hyperlipidemia
-No reported meds
#Carotid stenosis status post bilateral CEA
#Fem bypass with stent December 2023 [facility]
-Continue aspirin 81 mg daily
DVT prophylaxis -therapeutic Lovenox
Full code
Total time spent to see the patient on the floor, examine the patient, review data and lab results, discuss treatment plan with patient, nursing staff around 50 minutes.
Physical Exam
General: No acute distress
HEENT: Normocephalic, Atraumatic, EOMI, MMM
Respiratory: Clear to Auscultation bilaterally
Cardiac: Normal S1/S2, Regular Rate and Rhythm
GI: Soft, Nontender, Nondistended, Normal Bowel Sounds
Extremities: No Clubbing, Cyanosis
Musculoskeletal: Left hip dressing with mild blood
Neuro: Nonfocal/Grossly Intact
Psych: Calm, Cooperative
Anticipated Discharge: 24 - 48 hours
Subjective/Interval History
-
Date of Service: September 08, 2024
Patient reports her left hip pain is tolerable. No chest pain, no shortness of breath. No fever, no vomiting.
Objective Data
-
Labs:
Laboratory Results
09/08/24
06:00
WBC Pending
Hgb Pending
Hct Pending
Plt Count Pending
Sodium Pending
Potassium Pending
Chloride Pending
Carbon Dioxide Pending
BUN Pending
Creatinine Pending
Glucose Pending
Calcium Pending
Total Bilirubin Pending
AST Pending
ALT Pending
Alkaline Phosphatase Pending
Vital Signs:
Vital Signs
Temp Pulse Resp BP Pulse Ox
98.1 F 72 14 125/59 96
09/08/24 07:00 09/08/24 07:00 09/08/24 07:00 09/08/24 07:00 09/08/24 07:00
I&O
09/07/24 09/08/24 09/09/24
06:59 06:59 06:59
Intake Total 0 / 0 630 / 630
Output Total 350 / 350
Balance 0 / 0 280 / 280
[2024-09-08 11:20] VITALS: BP 127/59
[2024-09-08] MEDS: MORPHINE SULFATE 4 MG IV (11:52)
[2024-09-08] MEDS: SYNTHROID 100 MCG PO (11:54)
[2024-09-08] MEDS: ProAmatine PO (12:35)
[2024-09-08] MEDS: LOPRESSOR 25 MG PO (12:35)
[2024-09-08 15:00] VITALS: BP 124/66
[2024-09-08 15:41] LABS: Hematocrit 28.6 % (37.0-47.0); Hemoglobin 9.7 g/dL (12.0-16.0); Mean Corp Hgb Conc. 33.9 g/dL (33.0-37.0); Mean Corpuscular Hgb 33.7 pg (27.0-31.0); Mean Corpuscular Volume 99.3 fL (81.0-99.0); Mean Platelet Volume 11.1 fL (7.4-10.4); Platelet Count 224 10^3/uL (130-400); Red Blood Cell Count 2.88 10^6/uL (4.20-5.40); Red Cell Dist. Width 13.7 % (11.5-14.5); White Blood Cell Count 16.5 10^3/uL (4.8-10.8)
[2024-09-08] MEDS: ZOFRAN 4 MG IV (15:45)
[2024-09-08 16:00] LABS: ALT (SGPT) 17 U/L (0-35); AST (SGOT) 34 U/L (14-36); Albumin 3.9 g/dl (3.5-5.0); Alkaline Phosphatase 80 U/L (38-126); Blood Urea Nitrogen 35 mg/dl (7-17); Calcium 9.4 mg/dl (8.4-10.2); Carbon Dioxide 26 mmol/L (22-30); Chloride 98 mmol/L (98-107); Direct Bilirubin 0.1 mg/dl (0.0-0.4); Estimated Creatinine Clearance 33 ml/min; Glucose 165 mg/dl (70-99); Potassium 4.2 mmol/L (3.5-5.1); Sodium 137 mmol/L (135-145)
[2024-09-08] MEDS: LOVENOX 40 MG SC (17:11)
[2024-09-08] MEDS: MACROBID 100 MG PO ×2 (17:16→20:38)
[2024-09-08] MEDS: ARICEPT PO (20:40)
[2024-09-08 23:36] VITALS: BP 119/56
[2024-09-09 06:00] VITALS: BMI 24.9
[2024-09-09 07:00] VITALS: BP 144/64
[2024-09-09 08:36] LABS: Hematocrit 26.9 % (37.0-47.0); Hemoglobin 9.2 g/dL (12.0-16.0); Mean Corp Hgb Conc. 34.2 g/dL (33.0-37.0); Mean Corpuscular Hgb 35.9 pg (27.0-31.0); Mean Corpuscular Volume 105.1 fL (81.0-99.0); Mean Platelet Volume 11.8 fL (7.4-10.4); Platelet Count 211 10^3/uL (130-400); Red Blood Cell Count 2.56 10^6/uL (4.20-5.40); Red Cell Dist. Width 13.9 % (11.5-14.5); White Blood Cell Count 14.9 10^3/uL (4.8-10.8)
--- NOTE | 2024-09-09 08:37 | W.PN.HOSP.TC ---
Today's Communication/Plan
-
see bold
Assessment / Plan
Assessment / Plan
HPI: 83y F with PMH significant for mild dementia, hypertension and hypothyroidism who presents to ED for evaluation s/p fall at home. Patient states that she tripped over her walker and fell onto her L side. She complained of L hip pain and L
shoulder pain. L shoulder pain has since resolved. In the ED, x-rays showed evidence of L hip fracture.
#Mechanical fall left hip intertrochanteric fracture with displacement
Appreciate orthopedic surgery input, s/p left hip cephalomedullary nail fixation with Dr. Hendrickson 09/07
Pain control, laxatives, PT/OT. PT recommends SNF, CM informed
Maintain surgical dressings until 7 to 10 days postop. Staple removal at 2 weeks postop. If phi removed at SNF, outpatient follow-up 4 weeks postop.
Ortho signed off. Continue DVT prophylaxis for 28 days
# Acute urinary tract infection
#Persistent leukocytosis
Urine culture shows Enterococcus, started on Macrobid 100 mg twice a day on 09/07
#Acute blood loss anemia from surgery
Monitor hemoglobin
#Mechanical fall with left shoulder sprain
Left shoulder x-rays negative for fracture or dislocation
#Former smoker
-25 years 1 pack a day quit 40 years ago
#Orthostatic hypotension
-Continue midodrine 5 mg at noon
#Dementia with short-term memory impairment
#Chronic tremor/shuffling gait right greater than left.
Is oriented to name, place, son, year
-Fall precautions
-Continue donepezil 5 mg twice daily
#History of diastolic CHF
-Hold furosemide 20 mg every 3 days
-Continue metoprolol tartrate 25 mg at noon, continue aspirin 81 mg daily
#Hypothyroidism
-Continue levothyroxine 100 mcg p.o. noon
#Hyperlipidemia
-No reported meds
#Carotid stenosis status post bilateral CEA
#Fem bypass with stent December 2023 [facility]
-Continue aspirin 81 mg daily
DVT prophylaxis -SQ Lovenox
Full code
Updated family at bedside 09/09
Total time spent to see the patient on the floor, examine the patient, review data and lab results, discuss treatment plan with patient, nursing staff around 51 minutes.
Physical Exam
General: No acute distress
HEENT: Normocephalic, Atraumatic, EOMI, MMM
Respiratory: Clear to Auscultation bilaterally
Cardiac: Normal S1/S2, Regular Rate and Rhythm
GI: Soft, Nontender, Nondistended, Normal Bowel Sounds
Extremities: No Clubbing, Cyanosis
Musculoskeletal: Left hip dressing with mild blood
Neuro: Nonfocal/Grossly Intact
Psych: Calm, Cooperative
Anticipated Discharge: 24 - 48 hours
Subjective/Interval History
-
Date of Service: September 09, 2024
Patient complains of severe left hip pain with any type of movement. She had a large bowel movement. No chest pain, no shortness of breath. No fever, no vomiting.
Objective Data
-
Labs:
Laboratory Results
09/09/24
05:58
WBC 14.9 H
Hgb 9.2 L
Hct 26.9 L
Plt Count 211
Sodium Pending
Potassium Pending
Chloride Pending
Carbon Dioxide Pending
BUN Pending
Creatinine Pending
Glucose Pending
Calcium Pending
Vital Signs:
Vital Signs
Temp Pulse Resp BP Pulse Ox
98.3 F 90 14 144/64 95
09/09/24 07:00 09/09/24 07:00 09/09/24 07:00 09/09/24 07:00 09/09/24 07:00
I&O
09/08/24 09/09/24 09/10/24
06:59 06:59 06:59
Intake Total 630 / 630 900 / 900
Output Total 350 / 350
Balance 280 / 280 900 / 900
--- NOTE | 2024-09-09 08:56 | W.PN.ORTHO ---
Today's Communication / Plan
-
POD #2 Left Hip Gamma Nail 09/07/[address] Hendrickson
- WBAT to LLE with use of walker for assistance.
- We appreciate the assistance of PT/OT.
- Currently on therapeutic Lovenox. DVT prophylaxis per primary team.
- Pain control as needed. Ice and elevation for pain and edema control.
- Hgb this AM 9.2. Continue to monitor and trend.
- Maintain surgical dressings until 7 to 10 days postop. Staple removal at 2 weeks postop. If phi removed at SNF, outpatient follow-up 4 weeks postop. D/C info updated in discharge tab.
- Case management consult for discharge planning. Recommending SNF placement.
- Orthopedic surgery will sign off at this time. Please reengage with any further questions or concerns.
Assessment
.
Distal Motor Intact: Yes
Dressing:
Bloody drainage contained within Aquacel dressings. Dressing change performed today. Incisions well-approximated with phi. No active drainage. No erythema.
Calf is soft and nontender to palpation.
Able to plantarflex and dorsiflex left ankle.
Assessment:
POD #2 Left Hip Gamma Nail 09/07/[address] Hendrickson
Plan
.
Surgery / Date: Left Hip Gamma Nail 09/07/[address] Hendrickson
DVT Prophylaxis: Lovenox
Activity:
Out of bed.
PT/OT
Discharge Plan: Rehab and SNF
Discharge Information:
Appreciate CM.
Subjective
.
.:
Patient resting comfortably in bed. Reports that her left hip feels okay this morning. Denies any significant pain. Denies any other new complaints.
Vital Signs and Labs
.
Vital Signs and Labs:
Lab Results
09/09/24 05:58
Temp Pulse Resp BP Pulse Ox
98.3 F 90 14 144/64 95
09/09/24 07:00 09/09/24 07:00 09/09/24 07:00 09/09/24 07:00 09/09/24 07:00
[2024-09-09 09:09] LABS: Blood Urea Nitrogen 34 mg/dl (7-17); Calcium 8.8 mg/dl (8.4-10.2); Carbon Dioxide 26 mmol/L (22-30); Chloride 96 mmol/L (98-107); Estimated Creatinine Clearance 37 ml/min; Glucose 100 mg/dl (70-99); Potassium 4.3 mmol/L (3.5-5.1); Sodium 135 mmol/L (135-145); eGFR > 60.00
[2024-09-09] MEDS: MIRALAX 17 GRAMS PO (10:19)
[2024-09-09] MEDS: SENOKOT-S 2 TABLET PO (10:19)
[2024-09-09] MEDS: TYLENOL 650 MG PO ×3 (10:20→20:50)
[2024-09-09] MEDS: MACROBID 100 MG PO ×2 (10:21→20:50)
[2024-09-09] MEDS: ARICEPT 5 MG PO ×2 (10:21→20:50)
[2024-09-09] MEDS: THERAGRAN 1 TABLET PO ×2 (10:21→20:49)
[2024-09-09] MEDS: ROXICODONE 5 MG PO (13:01)
[2024-09-09] MEDS: LOPRESSOR 25 MG PO (13:05)
[2024-09-09] MEDS: SYNTHROID 100 MCG PO (13:06)
[2024-09-09] MEDS: ProAmatine 5 MG PO (13:06)
[2024-09-09 13:20] VITALS: BP 137/73
--- NOTE | 2024-09-09 14:24 | CM ---
CM following re: d/c planning.
Med team recs for SNF placement.
CM met with pt and friends in the room.
Pt agreeable to discussion about SNF.
She informed SW these are her aides, primary aide is Vero.
We discussed SNF placement, pt is agreeable, but uncertain about which facility.
CM provided SNF list and [facility] PAC data.
After discussion, they chose : [facility] (1st choice), [facility], [facility], [facility], [facility].
Pt requested CM to also call her son Mc.
CM spoke with Mc, agreed to facility options above.
Referrals sent.
We also discussed [facility] and waiver services, but pt is likely over income due to savings.
The 2 aides she has, she is paying out of pocket.
CM will continue to follow.
[2024-09-09 15:00] VITALS: BP 127/59
[2024-09-09] MEDS: LOVENOX 40 MG SC (17:40)
[2024-09-09 23:11] VITALS: BP 163/72
[2024-09-10 06:00] VITALS: BMI 25.0
--- NOTE | 2024-09-10 06:32 | W.PN.HOSP.TC ---
Today's Communication/Plan
-
Discharge SNF rehab when bed available and insurance auth clears
Assessment / Plan
Assessment / Plan
HPI: 83y F with PMH significant for mild dementia, hypertension and hypothyroidism who presents to ED for evaluation s/p fall at home. Patient states that she tripped over her walker and fell onto her L side. She complained of L hip pain and L
shoulder pain. L shoulder pain has since resolved. In the ED, x-rays showed evidence of L hip fracture.
#Mechanical fall left hip intertrochanteric fracture with displacement
Appreciate orthopedic surgery input, s/p left hip cephalomedullary nail fixation with Dr. Hendrickson 09/07
Pain control, laxatives, PT/OT. PT recommends SNF
Maintain surgical dressings until 7 to 10 days postop. Staple removal at 2 weeks postop. If phi removed at SNF, outpatient follow-up 4 weeks postop.
Ortho signed off. Continue DVT prophylaxis for 28 days
# Acute urinary tract infection
#Persistent leukocytosis
Urine culture shows Enterococcus resistant to tetracycline otherwise pansensitive, started on Macrobid 100 mg twice a day on 09/08
appears asymptomatic, denies dysuria, plan for 5 days abx 09/08-09/12
repeat CBC in 1 wk outpt recommended
#Acute blood loss anemia from surgery
Monitor hemoglobin, appears stable at this time
repeat CBC in 1 wk outpt recommended
#Mechanical fall with left shoulder sprain
Left shoulder x-rays negative for fracture or dislocation
#Former smoker
-25 years 1 pack a day quit 40 years ago
#Orthostatic hypotension
-Continue midodrine 5 mg at noon
#Dementia with short-term memory impairment
#Chronic tremor/shuffling gait right greater than left.
Is oriented to name, place, son, year
-Fall precautions
-Continue donepezil 5 mg twice daily
#History of diastolic CHF
-resume home furosemide 20 mg every 3 days on discharge
-Continue metoprolol tartrate 25 mg at noon, continue aspirin 81 mg daily
#Hypothyroidism
-Continue levothyroxine 100 mcg p.o. noon
#Hyperlipidemia
-No reported meds
#Carotid stenosis status post bilateral CEA
#Fem bypass with stent December 2023 [facility]
-Continue aspirin 81 mg daily
DVT prophylaxis -SQ Lovenox
Full code
Medically stable for discharge SNF rehab with outpatient follow up recommendations.
Discussed with patient, patient's aide Vero, patient's son Mc, case management, nurse
Total Time Preparing Discharge ___50____ minutes including examination of the patient, summary of the hospital stay, instructions for continuing care to all relevant caregivers; and preparation of discharge records, prescriptions, and referral
forms if necessary.
Physical Exam
General: No acute distress
HEENT: Normocephalic, Atraumatic, EOMI, MMM
Respiratory: Clear to Auscultation bilaterally
Cardiac: Normal S1/S2, Regular Rate and Rhythm
GI: Soft, Nontender, Nondistended, Normal Bowel Sounds
Extremities: No Clubbing, Cyanosis
Musculoskeletal: Left hip dressing with mild blood
Neuro: Awake Alert Conversant
Psych: Calm, Cooperative
Anticipated Discharge: Today
Subjective/Interval History
-
Date of Service: September 10, 2024
No acute distress resting comfortably in bed. Denies new acute issues at this time. Denies dysuria.
Objective Data
-
Labs:
Laboratory Results
09/10/24
04:41
WBC Pending
Hgb Pending
Hct Pending
Plt Count Pending
Sodium Pending
Potassium Pending
Chloride Pending
Carbon Dioxide Pending
BUN Pending
Creatinine Pending
Glucose Pending
Calcium Pending
Vital Signs:
Vital Signs
Temp Pulse Resp BP Pulse Ox
98.3 F 93 18 163/72 95
09/09/24 23:11 09/09/24 23:11 09/09/24 23:11 09/09/24 23:11 09/09/24 23:11
I&O
09/08/24 09/09/24 09/10/24
06:59 06:59 06:59
Intake Total 630 / 630 900 / 900 1000 / 1000
Output Total 350 / 350
Balance 280 / 280 900 / 900 1000 / 1000
[2024-09-10 07:00] VITALS: BP 157/74
[2024-09-10 07:00] LABS: Hematocrit 26.5 % (37.0-47.0); Hemoglobin 9.2 g/dL (12.0-16.0); Mean Corp Hgb Conc. 34.7 g/dL (33.0-37.0); Mean Corpuscular Hgb 35.5 pg (27.0-31.0); Mean Corpuscular Volume 102.3 fL (81.0-99.0); Mean Platelet Volume 11.5 fL (7.4-10.4); Platelet Count 222 10^3/uL (130-400); Red Blood Cell Count 2.59 10^6/uL (4.20-5.40); Red Cell Dist. Width 13.8 % (11.5-14.5); White Blood Cell Count 14.2 10^3/uL (4.8-10.8)
[2024-09-10 07:27] LABS: Blood Urea Nitrogen 28 mg/dl (7-17); Calcium 8.9 mg/dl (8.4-10.2); Carbon Dioxide 25 mmol/L (22-30); Chloride 98 mmol/L (98-107); Estimated Creatinine Clearance 55 ml/min; Glucose 105 mg/dl (70-99); Potassium 4.4 mmol/L (3.5-5.1); Sodium 135 mmol/L (135-145); eGFR > 60.00
[2024-09-10] MEDS: ARICEPT 5 MG PO (08:11)
[2024-09-10] MEDS: MACROBID 100 MG PO (08:11)
[2024-09-10] MEDS: THERAGRAN 1 TABLET PO (08:11)
[2024-09-10] MEDS: TYLENOL 650 MG PO ×2 (08:11→17:14)
[2024-09-10] MEDS: MIRALAX 17 GRAMS PO (08:12)
[2024-09-10 10:53] LABS: Iron 47 ug/dl (37-170)
[2024-09-10 10:55] LABS: Percent Saturation 18 % (20-50); Total Iron Binding Capacity 241 ug/dl (265-497)
--- NOTE | 2024-09-10 10:57 | CM ---
Addendum entered by Aniya Beatrice 09/10/24 15:57:
Facility and pts son aware of transport time of 6:30PM
Addendum entered by Aniya Beatrice 09/10/24 15:52:
Called [facility] - spoke with Reza
Auth approved for 5 days skilled care
09/10 NRD 09/14, call
Auth # [id number]
Ambulance auth # [id number]
Plan - transfer to [facility]
R - [phone]
- [phone]
Add[facility] 09/10/24 14:35:
Pt accepted at [facility]
Discussed with pts christian Bentley - agrees with ET
Will obtain auth
Addendum entered by Aniya Beatrice 09/10/24 13:11:
Discussed accepting facilities with christian Bentley - [facility] and [facility]
per son - requesting referral be made to [facility] - sent in [facility]
Spoke with Siria [phone] at [facility] - will review
Original Note:
Case management following for discharge planning
Received call from pts christian Bentley
Discussed SNF and reviewed accepting facilities - would like [facility]
Will need auth
Plan - SNF when medically ready
[2024-09-10 11:47] LABS: Vitamin B12 618 pg/ml (239-931)
[2024-09-10] MEDS: ProAmatine 5 MG PO (12:44)
[2024-09-10] MEDS: LOPRESSOR 25 MG PO (12:44)
[2024-09-10] MEDS: SYNTHROID 100 MCG PO (12:45)
--- NOTE | 2024-09-10 14:11 | W.DCSUMMARY ---
Discharge Summary
Discharge Data
Date of Admission: 09/05/24
Date of Discharge: 09/10/24
-
Pending Results: Yes
Additional Pending Results:
Folate level
Discharge Plan
-
Patient Disposition: Group Home/SNF
Discharge Diagnosis/Procedures: Mechanical fall left hip intertrochanteric fracture with displacement status post left hip cephalomedullary nail fixation with Dr. Hendrickson 09/07
Acute urinary tract infection
Leukocytosis possibly due to urinary tract infection
Acute blood loss anemia from surgery
Orthostatic hypotension
Dementia with short-term memory impairment
History of diastolic CHF
Hypothyroidism
History Carotid stenosis status post bilateral CEA
Peripheral Artery Disease with history Fem bypass with stent December 2023 [facility]
Condition: Fair
Diet: Regular
Activity: With assistance, As tolerated and With Walker
Driving Restrictions: No driving
Blood Work: Repeat CBC in 1 week of discharge
Other Services: PT and OT
Wound Care: Maintain surgical dressings until 7 to 10 days postop (Day of Surgery 09/07/24, dressing may be removed 09/14/24-09/17/24).
Latosha due for removal at 2 weeks postop 09/21/24.
Activity Restrictions/Additional Instructions:
Please follow up with primary care provider in 1 week of discharge and Orthopedic in 1-2 weeks of discharge.
Tylenol has been prescribed as needed for pain. Oxycodone has been prescribed as needed for moderate to severe pain.
Scheduled senna/colace prescribed for prophylaxis opiate induced constipation. Hold if diarrhea. Ok to switch to as needed if off opiate pain medications and bowel movements are regular.
Lovenox prescribed for DVT prophylaxis, last day of treatment recommended 10/04/24.
Macrobid prescribed for urinary tract infection. 09/12/24 is last day for antibiotic treatment
Please take medications as prescribed/recommended and follow up with primary care provider and/or other healthcare provider involved in your care for further adjustments to your medication regimen as necessary.
Referrals:
Georges Hendrickson MD [Active] - in one to two weeks
()
Shreyas Hollis DO [Family Provider] - in one week
Prescriptions:
New
enoxaparin 40 mg/0.4 mL Syringe
40 mg SC QPM 25 Days Qty: 10 0RF
Rx Instructions:
Last day of DVT prophylaxis 10/04/24
nitrofurantoin monohyd/m-cryst 100 mg Capsule
100 mg PO BID Qty: 5 0RF
Rx Instructions:
Last day of antibiotics 09/12/24
oxycodone 5 mg Tablet
5 mg PO BIDPRN PRN (Reason: moderate severe pain) Qty: 10 0RF
acetaminophen [Aphen] 325 mg tablet
650 mg PO Q6H PRN (Reason: mild pain/fever/headache) Qty: 30 0RF
polyethylene glycol 3350 [HealthyLax] 17 gram Powder In Packet
17 g PO DAILYPRN PRN (Reason: constipation) Qty: 14 0RF
sennosides-docusate sodium 8.6-50 mg Tablet
2 tab PO HS 14 Days Qty: 28 0RF
Rx Instructions:
Hold if diarrhea. Switch to as needed if off opiate pain meds and has regular bowel movements
Continued
donepezil 5 mg tablet
5 mg PO BID
Patient Comments:
09/05/2024: Pt's son states shes been on BID for about [address], but no new script was issued.
midodrine 5 mg tablet
5 mg PO NOON
therapeutic multivitamin Tablet
1 tab PO BID
aspirin 81 mg Tablet,Delayed Release (Dr/Ec)
81 mg PO NOON
levothyroxine 100 mcg tablet
100 mcg PO NOON
furosemide 20 mg tablet
20 mg PO Q3D
metoprolol tartrate 25 mg tablet
25 mg PO NOON
Visbiome 112.5 billion cell Capsule
1 cap PO NOON
PreserVision AREDS-2 250-90-40-1 mg Capsule
1 tab PO NOON
d-mannose 500 mg Capsule
500 mg PO NOON
Discharge Orders:
Discharge Patient (As Directed); Ordered 09/10/24
Ordered By: Vanda Chance
Discharge Date and Time
Print Language: ROMANSH
[2024-09-10 14:57] LABS: Folate 17.8 ng/ml (2.76-20)
[2024-09-10 15:00] VITALS: BP 134/60
[2024-09-10] MEDS: LOVENOX 40 MG SC (17:15)
[2024-09-10] MEDS: ROXICODONE 5 MG PO (17:29)
== END 2024-09-10 18:00 | DRG 481 ==
LOC: 2 SOUTH 20:43
PROVIDERS: Clinical Nurse Specialist Family Health; Family Medicine; Nurse Practitioner; Orthopaedic Surgery; ADMITTING PHYSICIAN Hospitalist; ATTENDING PHYSICIAN Internal Medicine; CONSULT PHYSICIAN Orthopaedic Surgery Hand Surgery; EMERGENCY PHYSICIAN Emergency Medicine; FAMILY PHYSICIAN Internal Medicine
PROC: 0QS736Z Reposition Left Upper Femur with Intramedullary Internal Fixation Device, Percutaneous Approach (ICD-10-PCS; 2024-09-07)
DX: S72.142A Displaced intertrochanteric fracture of left femur, initial encounter for closed fracture (principal); D62 Acute posthemorrhagic anemia; I50.32 Chronic diastolic (congestive) heart failure; N39.0 Urinary tract infection, site not specified; Z16.29 Resistance to other single specified antibiotic; S43.402A Unspecified sprain of left shoulder joint, initial encounter; F03.A0 Unspecified dementia, mild, without behavioral disturbance, psychotic disturbance, mood disturbance, and anxiety; I11.0 Hypertensive heart disease with heart failure; E03.9 Hypothyroidism, unspecified; E78.5 Hyperlipidemia, unspecified; I25.10 Atherosclerotic heart disease of native coronary artery without angina pectoris; I65.23 Occlusion and stenosis of bilateral carotid arteries; I73.9 Peripheral vascular disease, unspecified; I95.1 Orthostatic hypotension; R25.1 Tremor, unspecified; B95.2 Enterococcus as the cause of diseases classified elsewhere; D72.829 Elevated white blood cell count, unspecified; K59.00 Constipation, unspecified; R26.89 Other abnormalities of gait and mobility; R09.02 Hypoxemia; Z87.891 Personal history of nicotine dependence; Z91.041 Radiographic dye allergy status; Z88.2 Allergy status to sulfonamides; Z88.0 Allergy status to penicillin; Z79.890 Hormone replacement therapy; Z95.820 Peripheral vascular angioplasty status with implants and grafts; Z79.82 Long term (current) use of aspirin; W01.0XXA Fall on same level from slipping, tripping and stumbling without subsequent striking against object, initial encounter; Y92.009 Unspecified place in unspecified non-institutional (private) residence as the place of occurrence of the external cause
CPT/HCPCS: 73030; 73502; 76000; 80048; 80053; 81003; 81015; 82248; 82607; 82746; 83540; 83550; 83735; 85025; 85027; 86850; 86900; 86901; 87077; 87086; 87186; 93005; 96374; 96375; 97163; 97167; 97530; 97535; 99284; C1713; C1769